=== PATIENT | male | born 1975 | race Caucasian/White ===

== ENCOUNTER 2020-04-29 09:39 | Emergency (ER) | payer MEDICAID ==
[~2020-04-29] VITALS: Ht 185.4 cm; Wt 66.8 kg
--- NOTE | 2020-04-29 09:55 | NUR ---
machine shop repair technician at bedside.
[2020-04-29] MEDS ORDERED: ketorolac trometh. 30mg/ml inj. IV ONE (10:00)
[2020-04-29] MEDS ORDERED: morphine 4 MG/ML inj SYRINge IV ONE (10:05)
[2020-04-29] MEDS ORDERED: ondansetron/PF 4mg/2ml inj IV ONE (10:05)
[2020-04-29 10:16] LABS: BASOPHILS # (AUTO) 0.1 X10'3 (0-0.2); EOSINOPHILS # (AUTO) 0.2 X10'3 (0-0.9); EOSINOPHILS % (AUTO) 3.1 % (0-6); HEMATOCRIT 36.2 % (42.0-52.0); HEMOGLOBIN 12.1 g/dl (14.0-17.9); LYMPHOCYTES # (AUTO) 3.4 X10'3 (1.1-4.8); LYMPHOCYTES % (AUTO) 44.3 % (21-51); MEAN CORPUSCULAR HEMOGLOBIN 30.2 PG (27.0-31.0); MEAN CORPUSCULAR HGB CONC 33.4 g/dL (33.0-36.5); MEAN CORPUSCULAR VOLUME 90.5 FL (78-98); MEAN PLATELET VOLUME 6.8 FL (7.4-10.4); MONOCYTES # (AUTO) 0.9 X10'3 (0-0.9); MONOCYTES % (AUTO) 10.9 % (2-12); NEUTROPHILS # (AUTO) 3.2 X10'3 (1.8-7.7); NEUTROPHILS % (AUTO) 40.7 % (42-75); PLATELET COUNT 414 X10'3 (140-440); RED CELL DISTRIBUTION WIDTH 14.7 % (11.5-14.5); WHITE BLOOD COUNT 7.8 X10'3 (4.5-11.0)
[2020-04-29 10:19] LABS: ALANINE AMINOTRANSFERASE 22 U/L (12-78); ALBUMIN 3.7 G/DL (3.4-5.0); ALBUMIN/GLOBULIN RATIO 1.1 (1.1-1.5); ALKALINE PHOSPHATASE 87 IU/L (46-116); ANION GAP 9 (8-16); ASPARTATE AMINO TRANSFERASE 23 U/L (10-37); BILIRUBIN,TOTAL 0.4 MG/DL (0.1-1.0); BLOOD UREA NITROGEN 16 MG/DL (7-18); BUN/CREATININE RATIO 12.3 (5.4-32.0); CHLORIDE 107 MMOL/L (99-107); GLUCOSE 116 MG/DL (70-104); POTASSIUM 3.7 MMOL/L (3.5-5.1); SODIUM 140 MMOL/L (135-145); TOTAL CARBON DIOXIDE 23.7 MMOL/L (24-32); TOTAL PROTEIN 7.1 G/DL (6.4-8.2); eGFR 60 ML/MIN
[2020-04-29 10:34] LABS: COLOR,URINE BROWN (Yellow); UA COLLECTION TYPE CLN CATCH MIDSTREAM
[2020-04-29 10:35] LABS: CLARITY,URINE Cloudy (Clear)
[2020-04-29 10:38] LABS: RBC,URINE TNTC /HPF (0-2)
[2020-04-29 10:39] LABS: BACTERIA,URINE NONE SEEN /HPF (Neg); SQUAMOUS EPITHELIAL CELL,UR NONE SEEN /LPF (FEW)
[2020-04-29 10:40] LABS: MUCUS STRANDS NONE SEEN /LPF (Neg)
[2020-04-29 10:42] LABS: URINE AMPHETAMINE SCREEN POSITIVE (Neg); URINE BARBITUATE SCREEN NEGATIVE (Neg); URINE BENZODIAZEPINES SCREEN NEGATIVE (Neg); URINE CANNABINOID SCREEN POSITIVE (Neg); URINE COCAINE SCREEN NEGATIVE (Neg); URINE METHADONE SCREEN NEGATIVE (Neg); URINE OPIATE SCREEN NEGATIVE (Neg); URINE PHENCYCLIDINE SCREEN NEGATIVE (Neg)
[2020-04-29 11:22] VITALS: BP 139/84
[2020-04-29] MEDS ORDERED: ONDA8TAB6 PO (11:24)
[2020-04-29] MEDS ORDERED: HYDR-3965 PO (11:24)
[2020-04-29 11:32] LABS: CREATINE KINASE 234 U/L (39-308)
== END 2020-04-29 11:54 | disposition home or self-care (01) ==
LOC: ER 09:40
DX: N20.0 Calculus of kidney (principal); R10.31 Right lower quadrant pain; Z87.442 Personal history of urinary calculi; Z79.899 Other long term (current) drug therapy
CPT/HCPCS: 36415; 74176; 80053; 80305; 81001; 82550; 85025; 87088; 96374; 96375; 99284; J1885; J2270; J2405

== ENCOUNTER 2021-03-19 16:34 | Emergency (ER) | payer MEDICAID ==
[~2021-03-19] VITALS: Ht 182.9 cm; Wt 60.7 kg
[~2021-03-19 16:34] MED LIST: ONDA8TAB6 PO
[2021-03-19] MEDS ORDERED: normal saline 1000ML IV soln IVB ONE (18:30)
[2021-03-19] MEDS ORDERED: ketorolac trometh. 30mg/ml inj. IV ONE (18:35)
[2021-03-19] MEDS ORDERED: ondansetron/PF 4mg/2ml inj IV ONE (18:35)
[2021-03-19] MEDS ORDERED: morphine 4 MG/ML inj SYRINge IV ONE ×2 (18:35→20:15)
[2021-03-19 18:39] LABS: BASOPHILS # (AUTO) 0.1 X10'3 (0-0.2); BASOPHILS % (AUTO) 0.7 % (0-1); EOSINOPHILS # (AUTO) 0.2 X10'3 (0-0.9); EOSINOPHILS % (AUTO) 1.7 % (0-6); HEMATOCRIT 34.3 % (42.0-52.0); HEMOGLOBIN 11.4 g/dl (14.0-17.9); LYMPHOCYTES # (AUTO) 1.4 X10'3 (1.1-4.8); LYMPHOCYTES % (AUTO) 13.6 % (21-51); MEAN CORPUSCULAR HEMOGLOBIN 29.5 PG (27.0-31.0); MEAN CORPUSCULAR HGB CONC 33.2 g/dL (33.0-36.5); MEAN CORPUSCULAR VOLUME 88.8 FL (78-98); MEAN PLATELET VOLUME 6.5 FL (7.4-10.4); MONOCYTES # (AUTO) 0.6 X10'3 (0-0.9); MONOCYTES % (AUTO) 5.7 % (2-12); NEUTROPHILS # (AUTO) 7.9 X10'3 (1.8-7.7); NEUTROPHILS % (AUTO) 78.3 % (42-75); PLATELET COUNT 359 X10'3 (140-440); RED BLOOD COUNT 3.86 X10'6 (4.70-6.10); RED CELL DISTRIBUTION WIDTH 14.4 % (11.5-14.5); WHITE BLOOD COUNT 10.1 X10'3 (4.5-11.0)
[2021-03-19 18:49] LABS: ALANINE AMINOTRANSFERASE 19 U/L (12-78); ALBUMIN 3.6 G/DL (3.4-5.0); ALBUMIN/GLOBULIN RATIO 0.9 (1.1-1.5); ALKALINE PHOSPHATASE 94 IU/L (46-116); ANION GAP 10 (8-16); ASPARTATE AMINO TRANSFERASE 15 U/L (10-37); BILIRUBIN,TOTAL 0.3 MG/DL (0.1-1.0); BLOOD UREA NITROGEN 15 MG/DL (7-18); BUN/CREATININE RATIO 11.9 (5.4-32.0); CALCIUM 8.7 MG/DL (8.5-10.1); CHLORIDE 107 MMOL/L (99-107); CREATININE 1.26 MG/DL (0.60-1.10); GLUCOSE 142 MG/DL (70-104); POTASSIUM 3.3 MMOL/L (3.5-5.1); SODIUM 142 MMOL/L (135-145); TOTAL CARBON DIOXIDE 25.2 MMOL/L (24-32); TOTAL PROTEIN 7.5 G/DL (6.4-8.2); eGFR 62 ML/MIN
[2021-03-19] MEDS ORDERED: potassium Cl 20 mEq SR tablet PO ONE (18:55)
[2021-03-19 20:09] LABS: CLARITY,URINE CLOUDY (Clear); COLOR,URINE BROWN (Yellow); GLUCOSE, URINE NEGATIVE (Neg); KETONES,URINE TRACE mg/dl (Neg); LEUKOCYTE ESTERASE ,URINE NEGATIVE (Neg); OCCULT BLOOD,URINE LARGE (Neg); PH,URINE 6.5 (4.8-8.0); PROTEIN,URINE >=300 mg/dl (Neg)
[2021-03-19 20:14] LABS: NITRITES, URINE NEGATIVE (Neg); UA COLLECTION TYPE CLN CATCH MIDSTREAM
[2021-03-19 20:19] VITALS: BP 144/86
[2021-03-19] MEDS ORDERED: FLO0.4C PO (20:28)
[2021-03-19] MEDS ORDERED: HYDR-3965 PO (20:28)
[2021-03-19] MEDS ORDERED: ONDA4TAB6 PO (20:28)
[2021-03-19 20:29] LABS: BACTERIA,URINE 1+ /HPF (Neg); RBC,URINE TNTC /HPF (0-2)
[2021-03-19 20:30] LABS: CAL OXALATE CRYSTALS FEW /HPF (NEGATIVE); MUCUS STRANDS NONE SEEN /LPF (Neg); SQUAMOUS EPITHELIAL CELL,UR NONE SEEN /LPF (FEW)
== END 2021-03-19 20:40 | disposition home or self-care (01) ==
LOC: ER 16:35
DX: N20.1 Calculus of ureter (principal); N20.0 Calculus of kidney; E87.6 Hypokalemia; Z59.0 Homelessness
CPT/HCPCS: 36415; 74176; 80053; 81001; 85025; 87088; 96361; 96374; 96375; 96376; 99284; J1885; J2270; J2405; J7030

== ENCOUNTER 2021-03-20 05:19 | Emergency (ER) | payer MEDICAID ==
[~2021-03-20] VITALS: Ht 182.9 cm; Wt 68.2 kg
[~2021-03-20 05:19] MED LIST changes: +FLO0.4C PO; +HYDR-3965 PO; +ONDA4TAB6 PO
[2021-03-20] MEDS ORDERED: tamsulosin 0.4mg capsule PO ONE (05:35)
[2021-03-20] MEDS ORDERED: normal saline 1000ML IV soln IVB ONE (05:40)
[2021-03-20] MEDS ORDERED: ondansetron/PF 4mg/2ml inj IV ONE (05:40)
[2021-03-20] MEDS ORDERED: ketorolac trometh. 30mg/ml inj. IV ONE (05:40)
[2021-03-20] MEDS ORDERED: morphine 2 MG/ML inj. syringe IV PRN (05:40)
[2021-03-20 07:34] VITALS: BP 139/88
== END 2021-03-20 07:36 | disposition home or self-care (01) ==
LOC: ER 05:19
DX: N21.8 Other lower urinary tract calculus (principal); R10.32 Left lower quadrant pain; Z87.442 Personal history of urinary calculi; Z72.89 Other problems related to lifestyle; Z59.0 Homelessness; Z79.899 Other long term (current) drug therapy
CPT/HCPCS: 96361; 96374; 96375; 99284; J1885; J2270; J2405; J7030

== ENCOUNTER 2021-06-02 00:54 | Emergency (ER) | payer MEDICAID ==
[~2021-06-02] VITALS: Ht 175.3 cm; Wt 70.5 kg
[~2021-06-02 00:54] MED LIST changes: -FLO0.4C PO; -HYDR-3965 PO
[2021-06-02] MEDS ORDERED: ketorolac tromethamine 15mg/ml inj. IV ONE (01:05)
[2021-06-02] MEDS ORDERED: normal saline 1000ml 1,000 ML IV ONE (01:20)
[2021-06-02 01:33] LABS: UA COLLECTION TYPE CLN CATCH MIDSTREAM
[2021-06-02 01:36] LABS: CLARITY,URINE CLEAR (Clear); COLOR,URINE YELLOW (Yellow); PROTEIN,URINE 30 mg/dl (Neg)
[2021-06-02 01:37] LABS: GLUCOSE, URINE NEGATIVE (Neg); KETONES,URINE NEGATIVE (Neg); LEUKOCYTE ESTERASE ,URINE NEGATIVE (Neg); NITRITES, URINE NEGATIVE (Neg); OCCULT BLOOD,URINE SMALL (Neg); UROBILINOGEN,URINE 0.2 E.U/dL (0.2-1.0)
[2021-06-02 01:44] LABS: WBC,URINE NONE SEEN /HPF (0-4)
[2021-06-02 01:45] LABS: BACTERIA,URINE NONE SEEN /HPF (Neg); MUCUS STRANDS FEW /LPF (Neg); SQUAMOUS EPITHELIAL CELL,UR NONE SEEN /LPF (FEW)
[2021-06-02 01:53] LABS: BASOPHILS % (AUTO) 0.1 % (0-1); EOSINOPHILS % (AUTO) 0.4 % (0-6); HEMATOCRIT 31.8 % (42.0-52.0); HEMOGLOBIN 10.8 g/dl (14.0-17.9); LYMPHOCYTES # (AUTO) 0.3 X10'3 (1.1-4.8); LYMPHOCYTES % (AUTO) 2.8 % (21-51); MEAN CORPUSCULAR HGB CONC 33.9 g/dL (33.0-36.5); MEAN CORPUSCULAR VOLUME 85.6 FL (78-98); MEAN PLATELET VOLUME 6.3 FL (7.4-10.4); MONOCYTES # (AUTO) 0.1 X10'3 (0-0.9); NEUTROPHILS % (AUTO) 95.7 % (42-75); PLATELET COUNT 366 X10'3 (140-440); RED BLOOD COUNT 3.71 X10'6 (4.70-6.10); RED CELL DISTRIBUTION WIDTH 14.3 % (11.5-14.5); WHITE BLOOD COUNT 11.5 X10'3 (4.5-11.0)
[2021-06-02 02:06] LABS: ALANINE AMINOTRANSFERASE 151 U/L (12-78); ALBUMIN/GLOBULIN RATIO 0.7 (1.1-1.5); ALKALINE PHOSPHATASE 177 IU/L (46-116); ANION GAP 12 (8-16); ASPARTATE AMINO TRANSFERASE 398 U/L (10-37); BILIRUBIN,TOTAL 0.2 MG/DL (0.1-1.0); BLOOD UREA NITROGEN 20 MG/DL (7-18); BUN/CREATININE RATIO 11.9 (5.4-32.0); CALCIUM 8.3 MG/DL (8.5-10.1); CHLORIDE 102 MMOL/L (99-107); CREATININE 1.68 MG/DL (0.60-1.10); GLUCOSE 107 MG/DL (70-104); LIPASE < 50 U/L (73-393); POTASSIUM 3.2 MMOL/L (3.5-5.1); SODIUM 141 MMOL/L (135-145); TOTAL CARBON DIOXIDE 27.5 MMOL/L (24-32); TOTAL PROTEIN 7.1 G/DL (6.4-8.2); eGFR 44 ML/MIN
[2021-06-02 02:11] VITALS: BP 129/72
== END 2021-06-02 02:54 | disposition home or self-care (01) ==
LOC: ER 00:54
DX: R10.30 Lower abdominal pain, unspecified (principal); R74.01 Elevation of levels of liver transaminase levels; N17.9 Acute kidney failure, unspecified; R00.0 Tachycardia, unspecified; R19.7 Diarrhea, unspecified; Z87.442 Personal history of urinary calculi; Z59.0 Homelessness; Z79.899 Other long term (current) drug therapy
CPT/HCPCS: 36415; 76705; 80053; 81001; 83690; 85025; 96361; 96374; 99284; J1885; J7030

== ENCOUNTER 2022-04-26 10:57 | Emergency (ER) | payer MEDICAID ==
[~2022-04-26] VITALS: Ht 185.4 cm; Wt 75.0 kg
[2022-04-26 11:04] VITALS: BP 141/92
[2022-04-26] MEDS ORDERED: AMOX1TAB87 PO (11:26)
[2022-04-26] MEDS ORDERED: NAPR-56 PO (11:26)
== END 2022-04-26 11:38 | disposition home or self-care (01) ==
LOC: ER 10:57
DX: K04.7 Periapical abscess without sinus (principal); Z87.442 Personal history of urinary calculi; Z79.899 Other long term (current) drug therapy
CPT/HCPCS: 99283

== ENCOUNTER 2022-05-26 15:40 | Emergency (ER) | payer MEDICAID ==
[~2022-05-26] VITALS: Ht 185.4 cm; Wt 61.2 kg
[~2022-05-26 15:40] MED LIST changes: +NAPR-56 PO
[2022-05-26 15:52] VITALS: BP 168/108
[2022-05-26 16:36] LABS: CLARITY,URINE SLIGHTLY CLOUDY (Clear); COLOR,URINE YELLOW (Yellow); GLUCOSE, URINE NEGATIVE (Neg); KETONES,URINE NEGATIVE (Neg); LEUKOCYTE ESTERASE ,URINE NEGATIVE (Neg); NITRITES, URINE NEGATIVE (Neg); OCCULT BLOOD,URINE LARGE (Neg); PH,URINE 5.5 (4.8-8.0); PROTEIN,URINE TRACE mg/dl (Neg); UROBILINOGEN,URINE 0.2 E.U/dL (0.2-1.0)
[2022-05-26 16:40] LABS: UA COLLECTION TYPE CLN CATCH MIDSTREAM
[2022-05-26 16:43] LABS: BACTERIA,URINE FEW /HPF (Neg); MUCUS STRANDS FEW /LPF (Neg); RBC,URINE TNTC /HPF (0-2); SQUAMOUS EPITHELIAL CELL,UR FEW /LPF (FEW)
== END 2022-05-26 19:20 | disposition left against medical advice (07) ==
LOC: ER 15:41
DX: R10.9 Unspecified abdominal pain (principal); Z53.21 Procedure and treatment not carried out due to patient leaving prior to being seen by health care provider
CPT/HCPCS: 81001; 87088

== ENCOUNTER 2024-09-11 16:39 | Emergency (ER) | payer MEDICAID ==
[~2024-09-11] VITALS: Ht 185.4 cm; Wt 68.2 kg
[~2024-09-11 16:39] MED LIST changes: -NAPR-56 PO
[2024-09-11 17:38] VITALS: BP 156/99; PULSE 103; RESP 18; O2SAT 100
[2024-09-11] MEDS ORDERED: CLIN-97 PO (18:25)
[2024-09-11] MEDS ORDERED: CHLO118L3 TOP (18:25)
[2024-09-11 19:03] VITALS: TEMP 99.1
== END 2024-09-11 19:08 | disposition home or self-care (01) ==
LOC: ER 16:39
DX: S61.401A Unspecified open wound of right hand, initial encounter (principal); Z59.00 Homelessness unspecified; Z79.899 Other long term (current) drug therapy; X58.XXXA Exposure to other specified factors, initial encounter; Y93.89 Activity, other specified; Y92.89 Other specified places as the place of occurrence of the external cause; Y99.8 Other external cause status
CPT/HCPCS: 99283

== ENCOUNTER 2024-10-01 11:58 | Emergency (ER) | payer MEDICAID ==
[~2024-10-01] VITALS: Ht 185.4 cm; Wt 72.7 kg
[~2024-10-01 11:58] MED LIST changes: +CHLO118L3 TOP; +CLIN-97 PO
[2024-10-01 12:15] VITALS: BP 126/90; PULSE 80; RESP 16; O2SAT 99
== END 2024-10-01 16:00 | disposition left against medical advice (07) ==
LOC: ER 11:58
DX: Z48.00 Encounter for change or removal of nonsurgical wound dressing (principal); Z53.21 Procedure and treatment not carried out due to patient leaving prior to being seen by health care provider